=== PATIENT | female | born 1965 | race African-American/Black ===

== ENCOUNTER 2017-04-04 11:10 | Emergency (ER) | payer OTHER ==
[~2017-04-04] VITALS: Ht 157.5 cm; Wt 100.0 kg
[2017-04-04 12:30] VITALS: BP 125/96
== END 2017-04-04 16:18 | disposition home or self-care (01) ==
LOC: ER 14:17
DX: M17.11 Unilateral primary osteoarthritis, right knee (principal); I10 Essential (primary) hypertension; H40.9 Unspecified glaucoma; E66.9 Obesity, unspecified; Z91.041 Radiographic dye allergy status; Z91.013 Allergy to seafood; Z98.890 Other specified postprocedural states; Z68.41 Body mass index [BMI] 40.0-44.9, adult
CPT/HCPCS: 36415; 73562; 84550; 99285

== ENCOUNTER 2017-06-07 05:24 | Emergency (ER) | payer OTHER ==
[~2017-06-07] VITALS: Ht 157.5 cm; Wt 80.0 kg
[2017-06-07 06:32] VITALS: BP 148/85
[2017-06-07] MEDS ORDERED: POLYETHYLENE GLYCOL 3350 (17GM) 1 DOSE PACK PO ONE (07:00)
== END 2017-06-07 08:47 | disposition home or self-care (01) ==
LOC: ER 05:24
DX: K58.9 Irritable bowel syndrome, unspecified (principal); K62.89 Other specified diseases of anus and rectum; H40.9 Unspecified glaucoma; I10 Essential (primary) hypertension; E03.9 Hypothyroidism, unspecified; K44.9 Diaphragmatic hernia without obstruction or gangrene; Z88.2 Allergy status to sulfonamides; Z91.041 Radiographic dye allergy status; Z88.8 Allergy status to other drugs, medicaments and biological substances; Z91.013 Allergy to seafood; Z91.011 Allergy to milk products
CPT/HCPCS: 74000; 99283; Z7610

== ENCOUNTER 2018-05-23 01:25 | Emergency (ER) | payer OTHER ==
[~2018-05-23] VITALS: Ht 157.5 cm; Wt 75.0 kg
[2018-05-23 03:36] LABS: BASOPHILS % 0.7 % (0.0-2.0); EOSINOPHILS % 1.6 % (0.0-5.0); HEMATOCRIT. 40.5 % (36.0-48.0); HEMOGLOBIN. 13.7 g/dL (12.0-16.0); MEAN CORPUSCULAR HEMOGLOBIN 30.6 pg (28.0-32.0); MEAN CORPUSCULAR VOLUME 90.1 fL (81.0-99.0); MEAN PLATELET VOLUME 11.2 fl (7.4-10.4); MONOCYTES % 10.6 % (2.0-8.0); NEUTROPHILS % 58.1 % (40.0-76.0); PLATELET 190 x1000/uL (130-400); RED BLOOD CELL COUNT 4.49 mill/uL (4.2-5.4); RED CELL DISTRIBUTION WIDTH 13.2 % (11.6-14.6)
[2018-05-23 03:40] LABS: CLARITY URINE CLOUDY (CLEAR); COLOR URINE YELLOW (YELLOW); KETONES URINE 3+ (NEGATIVE); LEUKOCYTE ESTERASE URINE NEGATIVE (NEGATIVE); NITRITE URINE NEGATIVE (NEGATIVE); OCCULT BLOOD URINE NEGATIVE (NEGATIVE); PROTEIN URINE NEGATIVE (NEGATIVE); SPECIFIC GRAVITY URINE 1.016 (1.005-1.030)
[2018-05-23 03:43] LABS: CHLORIDE 99 mEq/L (98-107)
[2018-05-23 03:44] LABS: PROTHROMBIN TIME 10.6 sec (9.4-11.6)
[2018-05-23] MEDS ORDERED: SODIUM CHLORIDE 0.9% 1,000 ML IV ONE (04:15)
[2018-05-23 06:55] VITALS: BP 145/75
== END 2018-05-23 06:57 | disposition home or self-care (01) ==
LOC: ER 01:25 → CANBEDREQ 07:02
DX: E86.0 Dehydration (principal); R00.0 Tachycardia, unspecified; I10 Essential (primary) hypertension; Z88.6 Allergy status to analgesic agent; Z91.041 Radiographic dye allergy status; Z91.011 Allergy to milk products; Z88.5 Allergy status to narcotic agent; Z91.013 Allergy to seafood
CPT/HCPCS: 36415; 71045; 80053; 81003; 83605; 85025; 85610; 87040; 87086; 96360; 96361; 99285; J7030; Z7610

== ENCOUNTER 2018-11-15 14:50 | Emergency (ER) | payer OTHER ==
[~2018-11-15] VITALS: Ht 175.3 cm; Wt 89.0 kg
[2018-11-15 18:30] VITALS: BP 135/88
== END 2018-11-15 18:35 | disposition home or self-care (01) ==
LOC: ER 14:55
DX: F41.0 Panic disorder [episodic paroxysmal anxiety] (principal); I10 Essential (primary) hypertension; Z88.2 Allergy status to sulfonamides; Z88.5 Allergy status to narcotic agent; Z88.8 Allergy status to other drugs, medicaments and biological substances; Z91.041 Radiographic dye allergy status; Z91.011 Allergy to milk products; Z91.013 Allergy to seafood
CPT/HCPCS: 71045; 93005; 99284

== ENCOUNTER 2019-08-18 03:42 | Emergency (ER) | payer OTHER ==
[~2019-08-18] VITALS: Ht 157.5 cm; Wt 77.6 kg
[2019-08-18 03:58] VITALS: BP 141/106
[2019-08-18 05:17] LABS: CLARITY URINE CLEAR (CLEAR); COLOR URINE YELLOW (YELLOW); KETONES URINE 2+ (NEGATIVE); LEUKOCYTE ESTERASE URINE NEGATIVE (NEGATIVE); NITRITE URINE NEGATIVE (NEGATIVE); OCCULT BLOOD URINE NEGATIVE (NEGATIVE); PH URINE 5.5 (4.5-8.0); PROTEIN URINE NEGATIVE (NEGATIVE)
== END 2019-08-18 05:53 | disposition home or self-care (01) ==
LOC: ER 03:42
DX: R39.15 Urgency of urination (principal); I10 Essential (primary) hypertension; H40.9 Unspecified glaucoma; Z98.890 Other specified postprocedural states; Z88.5 Allergy status to narcotic agent; Z91.041 Radiographic dye allergy status; Z91.011 Allergy to milk products; Z88.6 Allergy status to analgesic agent; Z88.2 Allergy status to sulfonamides; Z88.8 Allergy status to other drugs, medicaments and biological substances
CPT/HCPCS: 81003; 82962; 99283

== ENCOUNTER 2019-09-11 13:27 | Emergency (ER) | payer OTHER ==
[~2019-09-11] VITALS: Ht 157.5 cm; Wt 75.0 kg
[2019-09-11 16:06] LABS: BASOPHILS % 0.6 % (0.0-2.0); EOSINOPHILS % 0.3 % (0.0-5.0); HEMATOCRIT. 40.3 % (36.0-48.0); HEMOGLOBIN. 13.8 g/dL (12.0-16.0); LYMPHOCYTES % 12.8 % (20.0-50.0); MEAN CORPUSCULAR HEMOGLOBIN 30.9 pg (28.0-32.0); MEAN CORPUSCULAR VOLUME 90.6 fL (81.0-99.0); MEAN PLATELET VOLUME 11.9 fl (7.4-10.4); MONOCYTES % 7.2 % (2.0-8.0); NEUTROPHILS % 79.1 % (40.0-76.0); PLATELET 181 x1000/uL (130-400); RED BLOOD CELL COUNT 4.45 mill/uL (4.2-5.4); RED CELL DISTRIBUTION WIDTH 12.9 % (11.6-14.6)
[2019-09-11 16:11] LABS: CHLORIDE 100 mEq/L (98-107)
[2019-09-11 16:12] LABS: PROTHROMBIN TIME 10.1 sec (9.6-11.0)
[2019-09-11] MEDS ORDERED: SODIUM CHLORIDE 0.9% 1,000 ML IV ONE (16:32)
[2019-09-11] MEDS ORDERED: KETOROLAC 30MG/ML VIAL IV STA (16:32)
[2019-09-11] MEDS ORDERED: ONDANSETRON HCL 4MG/2ML INJ IV STA (16:32)
[2019-09-11] MEDS ORDERED: AMLODIPINE 5MG TABLET PO ONE (16:45)
[2019-09-11] MEDS ORDERED: ASPIRIN 81MG TABLET PO ONE (16:45)
[2019-09-11 20:30] VITALS: BP 142/79
== END 2019-09-11 20:38 | disposition home or self-care (01) ==
LOC: ER 15:50
DX: R11.0 Nausea (principal); R51 Headache; I10 Essential (primary) hypertension; R19.7 Diarrhea, unspecified; R00.0 Tachycardia, unspecified
CPT/HCPCS: 36415; 71045; 80053; 83880; 84484; 85025; 85610; 93005; 96374; 96375; 99284; J1885; J2405; J7030; Z7610